=== PATIENT | male | born 1990 | race Caucasian/White ===

== ENCOUNTER 2018-07-16 21:07 | Emergency (ER) | payer SELFPAY ==
[~2018-07-16] VITALS: Ht 167.6 cm; Wt 85.3 kg
--- NOTE | 2018-07-16 21:11 | NUR ---
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
[2018-07-16 21:27] VITALS: BP 122/80
[2018-07-16] MEDS ORDERED: ONDANSETRON ODT 4 MG PO ONE (22:00)
[2018-07-16 22:15] LABS: MICROSCOPIC NOT IND
[2018-07-16 22:20] LABS: CULTURE INDICATED? NO
[2018-07-16 22:24] LABS: BASOPHILS # (AUTO) 0.04 x10^3/uL (0-0.1); BASOPHILS % (AUTO) 0 % (0-1); EOSINOPHILS # (AUTO) 0.88 x10^3/uL (0-0.4); EOSINOPHILS % (AUTO) 8 % (1-7); LYMPHOCYTES # (AUTO) 2.38 x10^3/uL (1-3.4); LYMPHOCYTES % (AUTO) 21 % (22-44); MD NO; MEAN CORPUSCULAR HGB CONC 32.2 g/dL (33.2-36.2); MEAN PLATELET VOLUME 8.3 fL (7.4-10.4); MONOCYTES # (AUTO) 0.87 x10^3/uL (0.2-0.8); MONOCYTES % (AUTO) 8 % (2-9); NEUTROPHILS # (AUTO) 7.09 x10^3/uL (1.8-6.8); NEUTROPHILS % (AUTO) 63 % (42-75); PLATELET COUNT 290 x10^3/uL (130-400); RED BLOOD COUNT 5.69 x10^6/uL (4.38-5.82)
[2018-07-16 22:36] LABS: ALANINE AMINOTRANSFERASE 307 U/L (12-78); ALBUMIN 3.7 g/dL (3.4-5.0); ANION GAP 8 mmol/L (5-15); CHLORIDE 107 mmol/L (98-107); CREATININE 0.95 mg/dL (0.7-1.3)
[2018-07-16 22:38] LABS: ALKALINE PHOSPHATASE 77 U/L (45-117); BILIRUBIN,TOTAL 0.9 mg/dL (0.2-1.0); TOTAL PROTEIN 7.5 g/dL (6.4-8.2)
== END 2018-07-17 00:17 | disposition home or self-care (01) ==
LOC: ED 23:20
DX: K80.70 Calculus of gallbladder and bile duct without cholecystitis without obstruction (principal); R10.33 Periumbilical pain; R11.2 Nausea with vomiting, unspecified; F17.200 Nicotine dependence, unspecified, uncomplicated
CPT/HCPCS: 36415; 74021; 80053; 81003; 83690; 85025; 99284